=== PATIENT | male | born 1970 | race Caucasian/White ===

== ENCOUNTER → 2017-08-31 | Outpatient (CLI) | payer OTHER ==
[~2017-08-31] MED LIST: GABA-113 PO
--- NOTE | 2017-08-31 11:43 | DIAGNOSTIC IMAGING REPORT ---
CHEST 2 VIEWS ROUTINE CLINICAL HISTORY: Fever. Cough. COMPARISON STUDY: No previous studies for comparison. FINDINGS: The lung volumes are normal. No pneumothorax or pleural effusion is present. Cardiac size is normal. Mediastinal contours are normal. There is no evidence for pulmonary edema. Lungs are clear. IMPRESSION: No acute cardiopulmonary findings. Electronically signed by: Vernon Miranda M.D. 08/31/2017 11:41 AM Dictated Date/Time: 08/31/2017 11:41 AM
== END | disposition home or self-care (01) ==
LOC: C.LAB1850 11:32
PROVIDERS: ATTEND Internal Medicine
DX: R50.9 Fever, unspecified (principal); R05 Cough

== ENCOUNTER → 2017-09-13 | Outpatient (CLI) | payer OTHER ==
--- NOTE | 2017-09-13 11:50 | DIAGNOSTIC IMAGING REPORT ---
CHEST 2 VIEWS ROUTINE CLINICAL HISTORY: 47 years-old Male presenting with URI Acute bronchitis. TECHNIQUE: PA and lateral views of the chest were obtained. COMPARISON: 08/31/2017. FINDINGS: Atherosclerosis of the aortic arch. Cardiac silhouette normal in size. Lungs and pleural spaces clear. Osseous structures normal. Upper abdomen normal. IMPRESSION: 1. No acute cardiopulmonary disease. Electronically signed by: Aman Palacios M.D. 09/13/2017 11:49 AM Dictated Date/Time: 09/13/2017 11:48 AM
[2017-09-13 18:07] LABS: BASO % 0.4 %; BASO ABS # 0.03 K/uL (0-0.2); HEMATOCRIT 44.9 % (42-52); HEMOGLOBIN 15.5 g/dL (14.0-18.0); IG# 0.01 K/uL (0.00-0.02); LYMPH % 26.1 %; LYMPH ABS # 2.12 K/uL (1.2-3.4); MEAN CELL VOLUME 95.5 fL (80-100); MEAN CORPUSCULAR HGB CONC 34.5 g/dl (32-36); MEAN PLATELET VOLUME 9.2 fL (7.4-10.4); MONO % 15.1 %; MONO ABS # 1.23 K/uL (0.11-0.59); NEUT % 58.3 %; NEUT ABS # 4.73 K/uL (1.4-6.5); PLATELET COUNT 228 K/uL (130-400); RED CELL DISTRIBUTION WIDTH CV 13.4 % (11.5-14.5); RED CELL DISTRIBUTION WIDTH SD 47.2 fL (36.4-46.3); WHITE BLOOD COUNT 8.12 K/uL (4.8-10.8)
[2017-09-13 18:36] LABS: BLOOD UREA NITROGEN 18 mg/dl (7-18); CALCIUM 8.7 mg/dl (8.5-10.1); CARBON DIOXIDE 28 mmol/L (21-32); CREATININE 1.24 mg/dl (0.60-1.40); GLUCOSE 66 mg/dl (70-99); POTASSIUM 3.7 mmol/L (3.5-5.1); SODIUM 136 mmol/L (136-145)
== END | disposition home or self-care (01) ==
LOC: C.RADPV 11:00
PROVIDERS: ATTEND Family Medicine
DX: J20.9 Acute bronchitis, unspecified (principal); J06.9 Acute upper respiratory infection, unspecified

== ENCOUNTER → 2017-09-25 | Outpatient (CLI) | payer OTHER ==
[2017-09-26 07:28] LABS: HEMOGLOBIN A1C 5.9 % (4.5-5.6)
== END | disposition home or self-care (01) ==
LOC: C.LABPVFM 16:23
PROVIDERS: ATTEND Family Medicine
DX: R53.83 Other fatigue (principal)